=== PATIENT | female | born 1940 | race Caucasian/White ===

== ENCOUNTER 2023-12-09 17:26 | Inpatient (IN) | payer MEDICARE ==
[2023-12-09] MEDS ORDERED: Ondansetron PF 4 MG/2 ML Vial IVP PRN (18:56)
[2023-12-09] MEDS ORDERED: Acetaminophen 325 MG TAB PO PRN (18:56)
[2023-12-09 19:59] VITALS: BMI 18.5
[2023-12-09 20:02] LABS: INR-International Normal Ratio 1.1; Prothrombin Time 14.1 sec (12.0-14.7)
[2023-12-09] MEDS: Lactated Ringer's 1,000 ML IV SCH (20:02)
[2023-12-09 20:03] LABS: PTT 35.3 sec (22.9-36.1)
[2023-12-09] MEDS: Potassium Chloride 20 MEQ in Premix 1 BAG IVPB SCH (20:03)
[2023-12-09 20:06] LABS: Lipase 18 U/L (8-78); Magnesium 2.4 mg/dL (1.6-2.6)
[2023-12-09 21:36] LABS: Amylase 23 U/L (20-160)
[2023-12-10 05:49] LABS: Hemoglobin 11.2 g/dL (12.0-16.0); Mean Corpuscular HGB CONC 32.9 g/dL (32.0-36.0); Mean Corpuscular Hemoglobin 31.1 pg (27.0-31.0); Mean Corpuscular Volume 94.4 fL (78.0-98.0); Mean Platelet Volume 8.8 fL (7.4-10.4); Platelet Count 406 10x3/uL (130-400)
[2023-12-10 06:09] LABS: ALT (SGPT) 90 U/L (8-55); AST (SGOT) 140 U/L (5-34); Albumin 2.9 g/dL (3.4-4.8); Alkaline Phosphatase 71 U/L (40-110); Anion Gap 13 mmol/L (10-20); BUN (Urea Nitrogen) 5 mg/dL (9.8-20.1); Bilirubin, Total 0.2 mg/dL (0.2-1.2); Calc. Creatinine Clearance 50 mL/min (70-130); Carbon Dioxide 26 mmol/L (23-31); Chloride 100 mmol/L (98-107); Estimated GFR 89; Globulin 2.8 g/dL (2.4-3.5); Glucose 100 mg/dL (83-110); Potassium 3.5 mmol/L (3.5-5.1); Protein, Total 5.7 g/dL (5.8-8.1); Sodium 135 mmol/L (136-145)
[2023-12-10 06:32] LABS: Band 3 % (5-11); Burr Cells SLIGHT = 2-5 cells HPF (0-1); Eosinophils 1 % (0-10); Lymphocytes 13 % (21-51); Macrocytosis SLIGHT = 6-15 cells HPF (0-5); Metamyelocyte 8 % (0-0); Monocytes 5 % (0-10); Myelocyte 2 % (0-0); Neutrophil 68 % (42-75); Platelet Adequacy Comment Platelets Normal; Polychromasia SLIGHT = 2-3 cells HPF (0-2); Toxic Granulation SLIGHT
[2023-12-10] MEDS: Pantoprazole 40 MG VIAL IVP SCH (08:43)
[2023-12-10] MEDS: Enoxaparin 40 MG (0.4 mL) SYRINGE SC SCH ×2 (08:43→20:49)
[2023-12-10 18:19] LABS: Anion Gap 20 mmol/L (10-20); BUN (Urea Nitrogen) 7 mg/dL (9.8-20.1); Calc. Creatinine Clearance 42 mL/min (70-130); Calcium 9.3 mg/dL (7.8-10.44); Carbon Dioxide 24 mmol/L (23-31); Chloride 102 mmol/L (98-107); Estimated GFR 85; Glucose 128 mg/dL (83-110); Magnesium 2.3 mg/dL (1.6-2.6); Phosphorus 2.6 mg/dL (2.3-4.7); Sodium 142 mmol/L (136-145)
[2023-12-10] MEDS: Metoprolol Tartrate 5 MG (5 mL) VIAL IVP SCH (19:14)
[2023-12-10] MEDS: Metoprolol Tartrate 25 MG TAB PO SCH (23:00)
[2023-12-11 04:59] LABS: Hematocrit 33.1 % (36.0-47.0); Hemoglobin 10.8 g/dL (12.0-16.0); Mean Corpuscular HGB CONC 32.6 g/dL (32.0-36.0); Mean Corpuscular Hemoglobin 31.3 pg (27.0-31.0); Mean Corpuscular Volume 95.9 fL (78.0-98.0); Platelet Count 416 10x3/uL (130-400); RBC Distribution Width 13.1 % (11.5-14.5); Red Blood Cell (RBC) Count 3.45 mill/uL (4.20-5.40)
[2023-12-11 05:08] LABS: ALT (SGPT) 78 U/L (8-55); AST (SGOT) 67 U/L (5-34); Albumin 2.9 g/dL (3.4-4.8); Alkaline Phosphatase 83 U/L (40-110); Anion Gap 12 mmol/L (10-20); BUN (Urea Nitrogen) 6 mg/dL (9.8-20.1); Bilirubin, Total 0.2 mg/dL (0.2-1.2); Calc. Creatinine Clearance 49 mL/min (70-130); Calcium 8.5 mg/dL (7.8-10.44); Carbon Dioxide 27 mmol/L (23-31); Chloride 102 mmol/L (98-107); Estimated GFR 88; Globulin 2.7 g/dL (2.4-3.5); Glucose 139 mg/dL (83-110); Iron 54 ug/dL (50-170); Iron Binding Capacity, Total 148 mcg/dL (265-497); Potassium 2.7 mmol/L (3.5-5.1); Protein, Total 5.6 g/dL (5.8-8.1); Sodium 138 mmol/L (136-145)
[2023-12-11 05:29] LABS: HBSAB Concentration Less than 8.00 mIU/mL; HBsAg Index 0.48 S/CO (0-0.99); Hep B Core Total Ab NONREACTIVE (NonReactive); Hep B Core Total Index 0.21 S/CO (0-0.79); Hep B Surf AB NONREACTIVE (NonReactive); Hep B Surf Ag NONREACTIVE S/CO (NonReactive); Hep C IgG Ab NONREACTIVE S/CO (NonReactive)
[2023-12-11 05:30] LABS: Band 2 % (5-11); Lymphocytes 16 % (21-51); Monocytes 13 % (0-10); Neutrophil 69 % (42-75); Platelet Adequacy Comment Platelets Normal; RBC Morphology Within Normal Limits
[2023-12-11] MEDS: Potassium Chloride 20 MEQ in Premix 1 BAG IVPB SCH (06:50)
[2023-12-11 07:20] LABS: Magnesium 2.1 mg/dL (1.6-2.6)
[2023-12-11] MEDS: Lisinopril 20 MG TAB PO SCH (08:51)
[2023-12-11] MEDS: Potassium Chloride 20 MEQ TAB PO SCH (08:51)
[2023-12-11] MEDS: Colchicine 0.6 MG TAB PO SCH (08:52)
[2023-12-11] MEDS: Metoprolol Tartrate 25 MG TAB PO SCH ×2 (08:52→21:03)
[2023-12-11] MEDS: Levothyroxine Sodium 75 MCG TAB PO SCH ×2 (10:12)
[2023-12-11 15:21] LABS: Anion Gap 11 mmol/L (10-20); BUN (Urea Nitrogen) 5 mg/dL (9.8-20.1); Calc. Creatinine Clearance 48 mL/min (70-130); Calcium 8.6 mg/dL (7.8-10.44); Carbon Dioxide 26 mmol/L (23-31); Chloride 101 mmol/L (98-107); Estimated GFR 89; Glucose 192 mg/dL (83-110); Potassium 3.7 mmol/L (3.5-5.1); Sodium 134 mmol/L (136-145)
[2023-12-11] MEDS ORDERED: Simvastatin 20 MG TAB PO SCH (21:00)
[2023-12-11] MEDS: Amlodipine 5 MG TAB PO SCH (21:04)
[2023-12-11] MEDS: Venlafaxine HCl XR 75 MG CAP PO SCH (21:04)
[2023-12-11] MEDS: Atorvastatin Calcium 10 MG TAB PO SCH (21:04)
[2023-12-12 05:08] LABS: #Basophils 0.05 10x3/uL (0.0-0.2); %Basophils 0.8 % (0.0-1.0); %Eosinophils 3.5 % (0.0-10.0); %Lymphocytes 28.3 % (21.0-51.0); Hematocrit 29.7 % (36.0-47.0); Hemoglobin 9.8 g/dL (12.0-16.0); Mean Corpuscular Hemoglobin 31.7 pg (27.0-31.0); Mean Corpuscular Volume 96.1 fL (78.0-98.0); Mean Platelet Volume 8.8 fL (7.4-10.4); Platelet Count 363 10x3/uL (130-400); RBC Distribution Width 13.2 % (11.5-14.5); Red Blood Cell (RBC) Count 3.09 mill/uL (4.20-5.40)
[2023-12-12 05:14] LABS: Hepatitis A Total ABS Negative (Negative)
[2023-12-12 05:30] LABS: ALT (SGPT) 57 U/L (8-55); AST (SGOT) 37 U/L (5-34); Albumin 2.8 g/dL (3.4-4.8); Alkaline Phosphatase 57 U/L (40-110); Anion Gap 12 mmol/L (10-20); BUN (Urea Nitrogen) 5 mg/dL (9.8-20.1); Bilirubin, Total 0.2 mg/dL (0.2-1.2); Calc. Creatinine Clearance 47 mL/min (70-130); Calcium 8.3 mg/dL (7.8-10.44); Carbon Dioxide 27 mmol/L (23-31); Chloride 104 mmol/L (98-107); Estimated GFR 88; Globulin 2.4 g/dL (2.4-3.5); Glucose 131 mg/dL (83-110); Potassium 3.6 mmol/L (3.5-5.1); Protein, Total 5.2 g/dL (5.8-8.1); Sodium 139 mmol/L (136-145)
[2023-12-12] MEDS: Apixaban 2.5 MG TAB PO SCH (09:01)
[2023-12-12 13:01] LABS: EliA Vaculitis New Method **** NEW METHOD ****; Mitochondrial Ab 0.8 U/mL (<4 Negative)
[2023-12-12 15:49] VITALS: BP 117/62; TEMP 98.3
[2023-12-13] MEDS ORDERED: Polyethylene Glycol 3350 17 GM Packet PO SCH (10:45)
[2023-12-13 12:42] LABS: Smooth Muscle Total ABS 3 Units (0-19)
== END 2023-12-12 18:41 | disposition home or self-care (01) | DRG 389 ==
LOC: SURG A 17:53 → 2NO 12-10 18:33
PROVIDERS: ADMIT Family Medicine; ATTEND Family Medicine
PROC: 0D9670Z Drainage of Stomach with Drainage Device, Via Natural or Artificial Opening (ICD-10-PCS; principal; 2023-12-09)
DX: K56.609 Unspecified intestinal obstruction, unspecified as to partial versus complete obstruction (principal); E87.1 Hypo-osmolality and hyponatremia; R64 Cachexia; Z68.1 Body mass index [BMI] 19.9 or less, adult; I10 Essential (primary) hypertension; E03.9 Hypothyroidism, unspecified; F32.A Depression, unspecified; E78.5 Hyperlipidemia, unspecified; K52.9 Noninfective gastroenteritis and colitis, unspecified; K74.60 Unspecified cirrhosis of liver; K83.8 Other specified diseases of biliary tract; E87.6 Hypokalemia; K82.8 Other specified diseases of gallbladder; I48.0 Paroxysmal atrial fibrillation; Z79.890 Hormone replacement therapy; Z79.899 Other long term (current) drug therapy; Z88.2 Allergy status to sulfonamides
CPT/HCPCS: 36415; 36416; 74250; 80053; 82105; 82150; 82728; 83516; 83540; 83550; 83605; 83615; 83690; 83735; 84100; 84443; 85025; 85610; 85730; 86015; 86704; 86706; 86708; 86803; 87340; 93005; 93010; 93306; J1650; J2470; J3480; J7120

== ENCOUNTER 2023-12-27 12:32 | Outpatient (CLI) | payer MEDICARE, OTHER | END 2023-12-27 12:33 | disposition home or self-care (01) | LOC: SCSMRI 12:32 | PROVIDERS: ATTEND Student in an Organized Health Care Education/Training Program | DX: K86.89 Other specified diseases of pancreas (principal) | CPT/HCPCS: 74183; 76376 ==